=== PATIENT | male | born 1950 | race Caucasian/White ===

== ENCOUNTER 2017-03-03 12:35 | Inpatient (IN) ==
[2017-03-03] MEDS ORDERED: Piperacillin/Tazobactam 3.375 GM in D5% in Water (Mini-Bag+) 100 ML IVPB ONE (12:56)
[2017-03-03] MEDS ORDERED: Vancomycin 1,500 MG in D5% in Water 250 ML IVPB ONE (12:56)
--- NOTE | 2017-03-03 12:59 | Emergency Department Note ---
Disposition Clinical Impression: Cellulitis of left hand Disposition: Admitted As Inpatient Forms: ED Satisfaction Letter Skin/Abscess/FB HPI Chief complaint: ED Extremity Problem,Nontraumatic Stated complaint: Cellulitis L Hand From UC Time Seen by Provider: 03/03/17 12:48 Source: patient Limitations: no limitations Nursing Notes Reviewed: Yes Vital Signs Reviewed: Yes HPI Narrative: Patient states last Saturday he noticed a small bubble on his thumb he took a pocket knife and unroofed the blister with some clear fluid drainage. After this several days later his daughter who is an PROVIDER [employer] was using a needle and was also taking at the wound. He started developing redness in his thumb on Saturday evening he went to the urgent care was placed on Keflex and doxycycline. He went for reevaluation today they recommended transfer to the hospital for IV antibiotics due to worsening of the cellulitis. Severity: moderate Quality: dull Consistency: constant Improves with: immobilization Worsens with: palpation, movement Associated symptoms: Reports: fever, chills Treatments prior to arrival: attempted to drain pus at home, antibiotic Home Medications Medication Instructions Recorded Confirmed Gemfibrozil [Lopid] 600 mg PO DAILY 03/23/15 04/16/15 Lisinopril [Zestril] 40 mg PO DAILY 03/23/15 04/16/15 metFORMIN [Glucophage] 500 mg PO BID 03/23/15 04/16/15 Previous Rx's Medication Instructions Recorded predniSONE [PredniSONE] 5 mg PO AD #14 tablet 04/16/15 Allergies Allergy/AdvReac Type Severity Reaction Status Date / Time No Known Allergies Allergy Verified 03/23/15 17:53 All systems ED: reviewed and negative except as stated. Constitutional: Reports: fever, chills Gastrointestinal: Denies: abdominal pain, nausea, vomiting Past Medical History - Past Medical History Source: patient, old records reviewed, nursing notes reviewed Medical history: Reports: arthritis, diabetes, hyperlipidemia, hypertension Surgical history: Reports: appendectomy, cholecystectomy Psychiatric history: Reports: no psych history - Social History Smoking Status: Never smoker Smokeless Tobacco Status: No Alcohol use: Reports: none Drug use: Reports: none Physical Exam - General Limitations: no limitations General appearance: alert, in no apparent distress - Head Head exam: atraumatic, normocephalic, normal inspection - Eye Eye exam: Present: normal appearance, PERRL, EOMI - Expanded Eye Exam Pupils: Left: reactive - ENT ENT exam: normal exam, normal oropharynx, mucous membranes moist - Expanded ENT Exam External ear exam: Present: normal external inspection Mouth exam: Present: normal external inspection Teeth exam: Present: normal inspection Throat exam: Present: normal inspection - Neck Neck exam: Present: normal inspection, full ROM, trachea midline - Chest Chest inspection: Present: normal inspection, symmetric chest wall rise - Respiratory Respiratory exam: Present: normal lung sounds bilaterally - Cardiovascular Cardiovascular exam: Present: regular rate, normal rhythm, normal heart sounds - Abdominal Exam Abdominal exam: Present: soft, Non-Tender. Absent: tenderness, distention, guarding, rebound, rigidity - Expanded Upper Extremity Exam Shoulder exam: Present: normal inspection, full ROM Arm exam: Present: normal inspection, full ROM Elbow exam: Present: normal inspection, full ROM Hand exam: Present: other (The dorsal surface of the left thumb has some erythema bruising discoloration no palpable abscess he has erythema extending into the dorsum of the hand and also to the mid forearm. He is able to flex and extend his thumb against resistance but mildly limited due to the swelling) Vascular exam: Normal: capillary refill, radial pulse - Expanded Lower Extremity Exam Hip/Pelvis exam: Present: normal inspection, full ROM Upper leg exam: Present: normal inspection, full ROM Knee exam: Present: normal inspection, full ROM Lower leg exam: Present: normal inspection, full ROM Ankle exam: Present: normal inspection, full ROM Foot/toe exam: Present: normal inspection, full ROM Neurovascular/Tendon exam: Absent: motor deficit, sensory deficit, tendon deficit - Back Exam Back exam: Present: normal inspection, full ROM. Absent: tenderness - Neurological Exam Neurological exam: Present: alert, oriented X3 - Expanded Neurological Exam Patient oriented to: Present: person, place, time Coma Scale Eye Opening: Spontaneous Coma Scale Motor Response: Obeys Commands Coma Scale Verbal Response: Oriented Coma Scale Total: 15 - Psychiatric Psychiatric exam: Present: normal affect, normal mood - Skin Skin exam: Present: warm, dry, intact, normal color Course Vital Signs Temperature 98.3 F 03/03/17 12:40 Pulse Rate 96 03/03/17 12:40 Respiratory Rate 16 03/03/17 12:40 Blood Pressure 175/92 03/03/17 12:40 O2 Sat by Pulse Oximetry 99 03/03/17 12:40 Temperature 98.3 F 03/03/17 12:40 Pulse Rate 96 03/03/17 12:40 Respiratory Rate 16 03/03/17 12:40 Blood Pressure 175/92 03/03/17 12:40 O2 Sat by Pulse Oximetry 99 03/03/17 12:40 Oxygen Delivery Oxygen Delivery Room Air
[2017-03-03 13:18] LABS: Basophils % 0.2 %; Eosinophils # 0.1 K/mcL (0.0-0.6); Eosinophils % 1.1 %; Hematocrit 40.4 % (37.5-50.1); Hemoglobin 14.1 g/dL (12.9-16.9); Immature Granulocytes % 0.5 % (0-4); Lymphocytes # 1.3 K/mcL (0.6-4.6); Lymphocytes % 10.2 %; Mean Corpuscular HGB Conc 34.9 g/dL (31.6-35.5); Mean Corpuscular Hemoglobin 30.1 pg (28.0-33.3); Mean Corpuscular Volume 86.1 fL (83.0-100.0); Mean Platelet Volume 10.9 fL (9.4-12.4); Monocytes # 1.1 K/mcL (0.0-1.3); Monocytes % 8.6 %; Neutrophils # 10.4 K/mcL (1.6-8.9); Platelet Count 234 K/mcL (140-400); Red Blood Count 4.69 M/mcL (4.19-5.50); Red Cell Distribution Width 12.6 % (11.5-14.5); Segmented Neutrophils % 79.4 %
[2017-03-03 13:24] LABS: INR 1.1; Prothrombin Time 11.7 Seconds (9.4-12.1)
[2017-03-03 13:32] LABS: BUN/Creatinine Ratio 19 (6-26); Blood Urea Nitrogen 25 mg/dL (8-26); Calcium 10.6 mg/dL (8.6-10.8); Carbon Dioxide 21 mEq/L (19-29); Chloride 101 mEq/L (98-109); Glucose 234 mg/dL (70-99); Osmolality,Calculated 292 (280-300); Potassium 4.8 mEq/L (3.5-4.5); Sodium 135 mEq/L (136-145); eGFR For African Americans > 60 (> 60); eGFR For Non-African Americans 56 (> 60)
[2017-03-03 14:57] LABS: Hemoglobin A1C 10.6 %
[2017-03-03] MEDS ORDERED: Naloxone 0.4 MG/ML INJ IVP PRN (15:04)
[2017-03-03] MEDS ORDERED: Acetaminophen 325 MG TABLET PO PRN (15:04)
[2017-03-03] MEDS ORDERED: Ondansetron ODT 4 MG TAB.RAPDIS SL PRN (15:04)
[2017-03-03] MEDS ORDERED: D5% in Water 1,000 ML IVC PRN (15:06)
[2017-03-03] MEDS ORDERED: *HR* Dextrose 50 % in Water (Syg) 50 ML SYRINGE IVP PRN (15:06)
[2017-03-03] MEDS ORDERED: Dextrose Gel 15 GM PO PRN ×2 (15:06)
--- NOTE | 2017-03-03 15:24 | Internal Med History&Physical ---
<Vinita Lockhart M - Last Filed: 03/03/17 15:22> Date of Encounter: 03/03/17 Time of Encounter: 15:22 Assessment and Plan (1) Cellulitis of left hand Current visit: Yes Status: Acute Patient presents with worsening cellulitis of left thumb and hand despite outpatient treatment of Keflex and doxycycline since Saturday. Reporting chills and sweats. Hand xray showed diffuse soft tissue swelling with no evidence of osteomyelitis. WBC elevated to 13.1 and patient mildly tachycardic. Patient unable to flex or extend left thumb. Concern for possible tenosynovitis in left thumb. CT of left hand ordered. Elevate left hand. Blood cultures drawn. IV antibiotics with vanc and zosyn. Consulted Dr. Anna of orthopedic surgery who will see patient tomorrow. NPO after midnight in case of possible surgery. (2) Type 2 diabetes mellitus Current visit: Yes Status: Acute Not controlled as evidenced by A1c of 10.6% Patient reports he just recently started lantus. diabetic diet. Hold metformin check blood sugars ACHS and q6hr while NPO Levemir 10u tonight as patient is NPO after midnight (takes 17u at home) sliding scale correction dose ACHS and q6hr while NPO hypoglycemic protocol. 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 BUN also mildly elevated at 25. Hold lisinopril. IV fluids 0.9NS at 100. Recheck chemistry in the morning. (4) Hypertension Current visit: Yes Status: Chronic Holding lisinopril due to LIANET. Give Hydralazine Q6hr PRN. Qualifiers: Hypertension type: essential hypertension Qualified Code(s): I10 - Essential (primary) hypertension (5) DVT prophylaxis Current visit: Yes Status: Acute anti-embolic stockings Heparin 5000u TID Internal Medicine - H&P: HPI Chief complaint: cellulitis Admitted From: Emergency Dept Plans for Post Hospital Care: Home History of present illness: Mr. Arevalo is a 66 year old male with HTN, HLD, type 2 diabetes who presented to the emergency department with worsening cellulitis of left thumb despite outpatient treatment. Patient reports he noticed a "bump" on his left thumb on Saturday night. On , he used a knife to open it and some drainage came out. By night, it was red, swollen and it had spread to his hand and he had his daughter look at it, who also tried to drain it with a needle. He had chills and sweats, and intermittent nausea and poor appetite. He went to Urgent care on Saturday and reports getting a "shot in the butt" and was started on keflex and doxycycline, which he has been taking. He was instructed to return today if his symptoms did not improve, which he did and he was directed to come here. Evaluation in the ED included xray of the left hand which showed diffuse soft tissue swelling, no evidence of osteomyelitis. WBC count was elevated at 13.1. He was mildly tachycardic with HR in the 90s to low 100s. He had mild LIANET with creatinine of 1.30, above his previous value of 1.24. On exam, he is alert and oriented, in no distress. Heart has regular rate and rhythm, lungs are clear bilaterally to auscultation. Abdomen soft, nontender. His left thumb is erythematous with small wound between the proximal and distal interphalangeal joints. The dorsal aspect of his left hand is also erythematous and swollen. The erythema spreads up approximately 1/3 of his distal arm. He is unable to flex or extend the thumb and it is tender to palpation. Past Med Surg Social Fam HX - Past Medical History Medical history: arthritis, diabetes, hyperlipidemia, hypertension Psychiatric history: no psych history - Past Surgical History Surgical History: appendectomy, cholecystectomy - Social History Smoking Status: Former smoker (30 pack year history) Smokeless Tobacco Status: No Alcohol use: none Drug use: marijuana - Family History Mother Living Status: Age at : 42 Cause of : ESRD Hx Family Endocrine Disorder: Yes (diabetes) Father Living Status: Hx Family Cancer: Yes Internal Medicine - H&P: Meds Gemfibrozil [Lopid] 600 mg PO BID 03/23/15 [History] Lisinopril [Zestril] 10 mg PO DAILY 03/23/15 [History] metFORMIN [Glucophage] 1,000 mg PO BID 03/23/15 [History] Cephalexin [Keflex] 1,000 mg PO BID 03/03/17 [History] Doxycycline 100 mg PO BID 03/03/17 [History] Insulin Glargine [Lantus] 17 unit SQ HS 03/03/17 [History] Allergies No Known Allergies Allergy (Verified 03/23/15 17:53) All Systems PM: A 10-system review of systems was performed and is negative for pertinent findings except as documented above in the HPI. - Constitutional Constitutional: anorexia, chills, night sweats, no fever(s) - EENT Eyes: no change in vision, no discharge, no pain, no photophobia Ears: no ear discharge, no ear pain, no tinnitus Nose, mouth and throat: no dysphagia, no nasal discharge, no neck pain, no sore throat - Cardiovascular Cardiovascular ROS IM: no chest pain, no diaphoresis, no dyspnea, no lightheadedness, no palpitations, no syncope - Respiratory Respiratory: no cough, no dyspnea, no wheezing, no excessive phlegm production - Gastrointestinal Gastrointestinal: nausea, no abdominal pain, no diarrhea, no hematemesis, no hematochezia, no melena, no vomiting - Musculoskeletal Musculoskeletal ROS IM: no numbness, no tingling - Integumentary Integumentary IM: erythema (left hand and lower arm), sores (left thumb), no rash, no unusual bruising - Neurological Neurological ROS: no confusion, no convulsions, no focal weakness, no numbness, no tingling, no tremor(s) - Hematologic/Lymphatic Hematologic/Lymphatic: no easy bruising - Constitutional Vitals: Temp Pulse Resp BP Pulse Ox 98.3 F 94 15 135/96 97 03/03/17 12:40 03/03/17 15:07 03/03/17 15:16 03/03/17 15:16 03/03/17 15:07 General appearance: Present: A&O X 3, pleasant, no acute distress - Head Head exam: Present: atraumatic, normocephalic - Eye Eye exam: Present: PERRL, conjuntiva pink, sclera anicteric Pupils: Present: PERRL - Neck Neck exam general surgery: Present: supple, trachea midline. Absent: lymphadenopathy - Respiratory Respiratory exam: Present: CTAB. Absent: accessory muscle use, rales, rhonchi, wheezes - Cardiovascular Cardiovascular exam: Present: RRR, +S1, +S2. Absent: diastolic murmur, gallop, rubs, systolic murmur - GI/Abdominal GI/Abdominal exam: Present: normal bowel sounds, soft, no peritoneal signs. Absent: distended, tenderness - Extremities Exam Extremities exam: Present: warm, radial pulses palpable and symmetrical. Absent : calf tenderness, cyanotic, pedal edema Additional comments: His left thumb is erythematous with small wound between the proximal and distal interphalangeal joints. The dorsal aspect of his left hand is also erythematous and swollen. The erythema spreads up approximately 1/3 of his distal arm. He is unable to flex or extend the thumb and it is tender to palpation. - Expanded Upper Extremities Exam Forearm wrist exam: Present: erythema (left) Hand wrist exam: Present: erythema (left), swelling (left), tenderness (left) Neuro motor exam: Absent: thumb IP flexion intact - Neurological Exam Neurological exam: Present: CN II-XII intact, oriented X3, no focal deficits. Absent: pronater drift, facial droop, speech deficit - Skin Skin exam: Present: dry, intact Internal Med - H&P Results - Labs CBC & Chem 7: 03/03/17 13:11 03/03/17 13:11 Labs: All Lab Results (24 Hours) 03/03/17 03/03/17 03/03/17 Range/Units 13:11 13:11 13:11 WBC 13.1 H (4.3-11.1) K/mcL RBC 4.69 (4.19-5.50) M/mcL Hgb 14.1 (12.9-16.9) g/dL Hct 40.4 (37.5-50.1) % MCV 86.1 (83.0-100.0) fL MCH 30.1 (28.0-33.3) pg MCHC 34.9 (31.6-35.5) g/dL RDW 12.6 (11.5-14.5) % Plt Count 234 (140-400) K/mcL MPV 10.9 (9.4-12.4) fL Immature Gran % 0.5 (0-4) % Seg Neutrophils % 79.4 % Lymphocytes % 10.2 % Monocytes % 8.6 % Eosinophils % 1.1 % Basophils % 0.2 % Neutrophils # 10.4 H (1.6-8.9) K/mcL Lymphocytes # 1.3 (0.6-4.6) K/mcL Monocytes # 1.1 (0.0-1.3) K/mcL Eosinophils # 0.1 (0.0-0.6) K/mcL Basophils # 0.0 (0.0-0.2) K/mcL ESR (0-10) mm/hr PT 11.7 (9.4-12.1) Seconds INR 1.1 APTT 32.0 (26.0-36.0) Seconds Sodium 135 L (136-145) mEq/L Potassium 4.8 H (3.5-4.5) mEq/L Chloride 101 (98-109) mEq/L Carbon Dioxide 21 (19-29) mEq/L BUN 25 (8-26) mg/dL Creatinine 1.30 H (0.72-1.25) mg/dL Est GFR ( Amer) > 60 (> 60) Est GFR (Non-Af Amer) 56 L (> 60) BUN/Creatinine Ratio 19 (6-26) Glucose 234 H (70-99) mg/dL Est Mean Plasma Glucose mg/dl Hemoglobin A1c ( - 5.6) % Calculated Osmolality 292 (280-300) Lactic Acid (0.5-2.2) mmol/L Calcium 10.6 (8.6-10.8) mg/dL 03/03/17 03/03/17 03/03/17 Range/Units 13:11 13:11 13:11 WBC (4.3-11.1) K/mcL RBC (4.19-5.50) M/mcL Hgb (12.9-16.9) g/dL Hct (37.5-50.1) % MCV (83.0-100.0) fL MCH (28.0-33.3) pg MCHC (31.6-35.5) g/dL RDW (11.5-14.5) % Plt Count (140-400) K/mcL MPV (9.4-12.4) fL Immature Gran % (0-4) % Seg Neutrophils % % Lymphocytes % % Monocytes % % Eosinophils % % Basophils % % Neutrophils # (1.6-8.9) K/mcL Lymphocytes # (0.6-4.6) K/mcL Monocytes # (0.0-1.3) K/mcL Eosinophils # (0.0-0.6) K/mcL Basophils # (0.0-0.2) K/mcL ESR 106 H (0-10) mm/hr PT (9.4-12.1) Seconds INR APTT (26.0-36.0) Seconds Sodium (136-145) mEq/L Potassium (3.5-4.5) mEq/L Chloride (98-109) mEq/L Carbon Dioxide (19-29) mEq/L BUN (8-26) mg/dL Creatinine (0.72-1.25) mg/dL Est GFR ( Amer) (> 60) Est GFR (Non-Af Amer) (> 60) BUN/Creatinine Ratio (6-26) Glucose (70-99) mg/dL Est Mean Plasma Glucose 258 mg/dl Hemoglobin A1c 10.6 H ( - 5.6) % Calculated Osmolality (280-300) Lactic Acid 1.1 (0.5-2.2) mmol/L Calcium (8.6-10.8) mg/dL - Diagnostic Studies Other Images Additional comments: Hand X-Ray 03/03/17 12:58 IMPRESSION: 1. Diffuse soft tissue swelling. No radiopaque foreign body or soft tissue gas. 2. No radiographic evidence of osteomyelitis or other acute abnormality. 3. Suspect a chronic nondisplaced fracture of the 5th metacarpal neck. D/ / Tanmay Phan MD / Tanmay Phan MD Interpreting Provider: Tanmay Phan MD <Kenia Ivy - Last Filed: 03/03/17 18:06> Date of Encounter: 03/03/17 Internal Medicine - H&P: HPI History of present illness: Mr. Arevalo is a 66 year old male Past Med Surg Social Fam HX - Family History Mother Living Status: Age at : 42 Cause of : ESRD Hx Family Endocrine Disorder: Yes (diabetes) Father Living Status: Hx Family Cancer: Yes Sister Hx Family Endocrine Disorder: Yes All Systems PM: A 10-system review of systems was performed and is negative for pertinent findings except as documented above in the HPI. - Constitutional Vitals: Temp Pulse Resp BP Pulse Ox 98.5 F 84 16 172/91 97 03/03/17 15:57 03/03/17 15:57 03/03/17 15:57 03/03/17 15:57 03/03/17 15:57 Internal Med - H&P Results - Labs CBC & Chem 7: 03/03/17 13:11 03/03/17 13:11 - Impressions ITS Impressions Hand CT 03/03/17 15:19 IMPRESSION: 1. Subcutaneous fat stranding in the 1st digit and along the dorsum of the hand and wrist compatible with cellulitis. No well-defined drainable fluid collection. 2. Grossly intact tendons without convincing evidence of tenosynovitis. Please note that CT is limited for evaluation of tenosynovitis. 3. No CT evidence of osteomyelitis or other acute osseous abnormality. D/ / Tanmay Phan MD / Tanmay Phan MD Interpreting Provider: Tanmay Phan MD - Attending Attestation I examined this patient and my medical decision-making was reviewed with the HUM[employer]NA[employer]UR[employer]. I agree with the documented findings, disposition and treatment plan as described .
[2017-03-03] MEDS: *HR* Heparin 5,000 UNIT/ML VIAL SQ SCH (15:58)
[2017-03-03] MEDS: 0.9 % Sodium Chloride 1,000 ML IVC SCH (15:58)
[2017-03-03] MEDS: Piperacillin/Tazobactam 3.375 GM in D5% in Water (Mini-Bag+) 100 ML IVPB SCH (15:59)
[2017-03-03] MEDS ORDERED: Insulin LISPRO 300 UNITS/3 ML VIAL SQ SCH ×2 (16:30→21:00)
[2017-03-03] MEDS ORDERED: Insulin DETEMIR 100 UNIT/ML X5UNITS SQ SCH ×2 (21:00)
[2017-03-04] MEDS: *HR* Heparin 5,000 UNIT/ML VIAL SQ SCH ×4 (00:45→23:41)
[2017-03-04] MEDS: Insulin LISPRO 300 UNITS/3 ML VIAL SQ SCH ×5 (00:45→22:01)
[2017-03-04] MEDS: Piperacillin/Tazobactam 3.375 GM in D5% in Water (Mini-Bag+) 100 ML IVPB SCH ×4 (01:00→23:41)
[2017-03-04] MEDS: Vancomycin 1,500 MG in D5% in Water 250 ML IVPB SCH ×2 (02:00→15:43)
[2017-03-04 03:29] LABS: BUN/Creatinine Ratio 20 (6-26); Blood Urea Nitrogen 22 mg/dL (8-26); Calcium 9.7 mg/dL (8.6-10.8); Carbon Dioxide 21 mEq/L (19-29); Chloride 102 mEq/L (98-109); Glucose 190 mg/dL (70-99); Osmolality,Calculated 286 (280-300); Potassium 3.9 mEq/L (3.5-4.5); Sodium 134 mEq/L (136-145); eGFR For African Americans > 60 (> 60); eGFR For Non-African Americans > 60 (> 60)
[2017-03-04 03:47] LABS: Basophils % 0.3 %; Eosinophils # 0.2 K/mcL (0.0-0.6); Eosinophils % 1.7 %; Hematocrit 37.5 % (37.5-50.1); Immature Granulocytes % 0.4 % (0-4); Lymphocytes # 1.4 K/mcL (0.6-4.6); Lymphocytes % 12.7 %; Mean Corpuscular HGB Conc 34.7 g/dL (31.6-35.5); Mean Corpuscular Volume 86.4 fL (83.0-100.0); Mean Platelet Volume 11.5 fL (9.4-12.4); Monocytes # 1.1 K/mcL (0.0-1.3); Monocytes % 9.9 %; Neutrophils # 8.6 K/mcL (1.6-8.9); Platelet Count 254 K/mcL (140-400); Red Blood Count 4.34 M/mcL (4.19-5.50); Red Cell Distribution Width 12.4 % (11.5-14.5)
[2017-03-04] MEDS ORDERED: Vancomycin 1,500 MG in D5% in Water 250 ML IVPB SCH (09:00)
--- NOTE | 2017-03-04 11:04 | Orthopedic Consult Note ---
Date of Encounter: 03/04/17 Time of Encounter: 07:45 Assessment and Plan (1) Cellulitis of left hand Current Visit: Yes Status: Acute Continue IV abx and pain control per hospitalist. Will continue to monitor after another night. If no improvement tomorrow will consider surgical intervention. Elevate hand in stockinette from IV pole. ROM as tolerated. History of Present Illness Chief complaint: left thumb swelling HPI: Mr. Arevalo is a 66 year old male who presented to the ER yesterday with left thumb swelling and redness. States that he first noticed a little blister to the top of his thumb on 02/27. The next day he admits to using his pocket knife to pop open the blister and got a little watery drainage from it. That night started to notice the redness and swelling and admits to applying a "black drawing salve". He went to urgent care on 03/01 and states he was given rocephin and started on PO keflex and doxycycline but he did not notice any improvement so he returned on 03/03 and was then admitted. He states he has not noticed much improvement in his swelling or redness overnight but he feels he has some improved motion to the thumb. States most of pain is on top of thumb and the redness spreads to hand and wrist. No pain at rest, only with motion of thumb. Denies numbness to tingling to digits. Denies any known injury, thought it was maybe a splinter. Denies any chest pain, SOB, fever. Past Med Surg Social Fam HX - Past Medical History Medical history: arthritis, diabetes, hyperlipidemia, hypertension Psychiatric history: no psych history - Past Surgical History Surgical History: appendectomy, cholecystectomy - Social History Smoking Status: Former smoker (30 pack year history) Smokeless Tobacco Status: No Alcohol use: none Drug use: marijuana - Family History Mother Living Status: Age at : 42 Cause of : ESRD Hx Family Endocrine Disorder: Yes (diabetes) Father Living Status: Hx Family Cancer: Yes Sister Hx Family Endocrine Disorder: Yes Medications and Allergies Gemfibrozil [Lopid] 600 mg PO BID 03/23/15 [History] Lisinopril [Zestril] 10 mg PO DAILY 03/23/15 [History] metFORMIN [Glucophage] 1,000 mg PO BID 03/23/15 [History] Cephalexin [Keflex] 1,000 mg PO BID 03/03/17 [History] Doxycycline 100 mg PO BID 03/03/17 [History] Insulin Glargine [Lantus] 17 unit SQ HS 03/03/17 [History] Allergies No Known Allergies Allergy (Verified 03/23/15 17:53) All Systems Reviewed: A 10-system review of systems was performed and is negative for pertinent findings except as documented above in the HPI. - Constitutional Constitutional: as per HPI - Cardiovascular Cardiovascular: as per HPI - Respiratory Respiratory: as per HPI - Musculoskeletal Musculoskeletal: as per HPI Physical Exam - Constitutional Vitals: Temp Pulse Resp BP Pulse Ox 98.3 F 91 16 159/90 97 03/04/17 06:44 03/04/17 06:44 03/04/17 06:44 03/04/17 06:44 03/04/17 08:23 - Wrist & Hand left Location of pain: thumb (Moderate erythema and swelling to dorsal thumb from base of nail bed to wrist all on dorsal side. No erythema to volar side. Small punture wound to dorsal thumb over proximal phalanx. Mild fluctuance noted over first MC head moderate tenderness to palpation of first digt on dorsal side, minimal pain on volar side. thumb held in slightly flexed position with moderate pain with passive flexion or extension. Limited AROM of thumb. Good motion of all other digits and wrist with no pain. brisk cap refill, NV intact) Results - Labs Result Diagrams: 03/04/17 01:16 03/04/17 01:16 Labs: Abnormal lab results WBC 11.4 K/mcL (4.3-11.1) H 03/04/17 01:16 ESR 106 mm/hr (0-10) H 03/03/17 13:11 Sodium 134 mEq/L (136-145) L 03/04/17 01:16 Glucose 190 mg/dL (70-99) H 03/04/17 01:16 POC Glucose 189 (58-89) H 03/04/17 00:38 Hemoglobin A1c 10.6 % (-5.6) H 03/03/17 13:11 H & H 03/04/17 Range/Units 01:16 Hgb 13.0 (12.9-16.9) g/dL Hct 37.5 (37.5-50.1) % All other labs normal. Consult Discharge Plan - Plan Referrals: Airam Fenton CNP [Primary Care Provider] - - Attending Attestation Case and plan of care discussed with supervising physician who was available for all aspects of care.
[2017-03-04] MEDS: 0.9 % Sodium Chloride 1,000 ML IVC SCH (12:57)
--- NOTE | 2017-03-04 15:33 | Internal Med Progress Note ---
Date of Encounter: 03/04/17 Time of Encounter: 08:35 - Assessment and plan (1) Cellulitis of left hand Current Visit: Yes Status: Acute Assessment and plan: Continue IV antibiotics. Orthopedics has been consulted and we will follow their recommendations. Failed outpatient treatment. Moderate risk for complications. (2) Hypertension Current Visit: Yes Status: Chronic Assessment and plan: Will place patient back on lisinopril now that his renal function has normalized. Blood pressure is uncontrolled. Qualifiers: Hypertension type: essential hypertension Qualified Code(s): I10 - Essential (primary) hypertension (3) Type 2 diabetes mellitus Current Visit: Yes Status: Chronic Assessment and plan: Blood sugars are elevated. On sliding scale insulin and Levemir. We will increase her dosage. Continue to monitor blood sugars closely. Continue diabetic diet. Qualifiers: Diabetes mellitus complication status: with hyperglycemia Diabetes mellitus emt intermediate insulin use: with emt intermediate use Qualified Code(s): E11.65 - Type 2 diabetes mellitus with hyperglycemia; Z79.4 - director long term care (current) use of insulin (4) LIANET (acute kidney injury) Current Visit: Yes Status: Resolved Assessment and plan: Acute kidney injury has resolved. Patient will be placed back on lisinopril. Patient has chronic pain and has been taking ibuprofen twice daily for several months to years. He has been advised to discontinue taking this medication on a regular basis (5) DVT prophylaxis Current Visit: Yes Status: Acute Assessment and plan: On heparin - Subjective Interval history: Patient is sitting up in chair. Appears comfortable. Denies any new complaints. Swelling and redness in his left hand is slightly improved compared to yesterday. No fever or chills reported. - Constitutional Vitals: Temp Pulse Resp BP Pulse Ox 97.9 F 84 16 156/90 98 03/04/17 11:20 03/04/17 11:20 03/04/17 11:20 03/04/17 11:20 03/04/17 11:20 General appearance: Present: A&O X 3, pleasant, no acute distress, answers questions appropriately - Respiratory Respiratory exam: Present: CTAB. Absent: accessory muscle use, rales, rhonchi, wheezes - Cardiovascular Cardiovascular exam: Present: RRR, +S1, +S2. Absent: diastolic murmur, gallop, rubs, systolic murmur - GI/Abdominal GI/Abdominal exam: Present: normal bowel sounds, soft, no peritoneal signs. Absent: distended, tenderness - Extremities Exam Extremities exam: Present: warm, radial pulses palpable and symmetrical. Absent : calf tenderness, cyanotic, pedal edema Additional comments: Erythema and swelling involving the thumb and dorsum of the left hand. Palmar surfaces completely excluded from cellulitis. - Neurological Exam Neurological exam: Present: alert, oriented X3, no focal deficits. Absent: facial droop, speech deficit Internal Medicine: Result - Labs CBC & Chem 7: 03/04/17 01:16 03/04/17 01:16 Labs: Short CBC 03/04/17 Range/Units 01:16 WBC 11.4 H (4.3-11.1) K/mcL Hgb 13.0 (12.9-16.9) g/dL Hct 37.5 (37.5-50.1) % Plt Count 254 (140-400) K/mcL Neutrophils # 8.6 (1.6-8.9) K/mcL BMP 03/04/17 01:16 Sodium 134 L Potassium 3.9 Chloride 102 Carbon Dioxide 21 BUN 22 Creatinine 1.09 Glucose 190 H Calcium 9.7 - ABG Interpretation ABG results: PT/INR, D-dimer PT 11.7 Seconds (9.4-12.1) 03/03/17 13:11 - Impressions Impressions Hand CT 03/03/17 15:19 IMPRESSION: 1. Subcutaneous fat stranding in the 1st digit and along the dorsum of the hand and wrist compatible with cellulitis. No well-defined drainable fluid collection. 2. Grossly intact tendons without convincing evidence of tenosynovitis. Please note that CT is limited for evaluation of tenosynovitis. 3. No CT evidence of osteomyelitis or other acute osseous abnormality. D/ / Tanmay Phan MD / Tanmay Phan MD Interpreting Provider: Tanmay Phan MD - VTE Documentation of Mechanical Device: Graduated compression elastic hosiery Consult Discharge Plan - Plan Referrals: Airam Fenton, ROLLER MILL OPERATOR [Primary Care Provider] -
[2017-03-04] MEDS ORDERED: Insulin DETEMIR 100 UNIT/ML X5UNITS SQ SCH (16:15)
[2017-03-05 02:27] LABS: Basophils % 0.3 %; Eosinophils # 0.1 K/mcL (0.0-0.6); Eosinophils % 1.3 %; Hematocrit 38.9 % (37.5-50.1); Hemoglobin 13.9 g/dL (12.9-16.9); Immature Granulocytes % 0.5 % (0-4); Lymphocytes # 1.8 K/mcL (0.6-4.6); Lymphocytes % 16.9 %; Mean Corpuscular HGB Conc 35.7 g/dL (31.6-35.5); Mean Corpuscular Hemoglobin 30.5 pg (28.0-33.3); Mean Corpuscular Volume 85.3 fL (83.0-100.0); Neutrophils # 7.4 K/mcL (1.6-8.9); Platelet Count 262 K/mcL (140-400); Red Blood Count 4.56 M/mcL (4.19-5.50); Red Cell Distribution Width 12.2 % (11.5-14.5)
[2017-03-05 02:41] LABS: BUN/Creatinine Ratio 20 (6-26); Blood Urea Nitrogen 18 mg/dL (8-26); Calcium 10.4 mg/dL (8.6-10.8); Carbon Dioxide 22 mEq/L (19-29); Chloride 101 mEq/L (98-109); Glucose 140 mg/dL (70-99); Osmolality,Calculated 284 (280-300); Potassium 3.8 mEq/L (3.5-4.5); Sodium 135 mEq/L (136-145); eGFR For African Americans > 60 (> 60); eGFR For Non-African Americans > 60 (> 60)
[2017-03-05] MEDS: Vancomycin 1,500 MG in D5% in Water 250 ML IVPB SCH ×2 (02:53→15:04)
[2017-03-05] MEDS: *HR* Heparin 5,000 UNIT/ML VIAL SQ SCH ×3 (08:11→23:16)
[2017-03-05] MEDS: Insulin LISPRO 300 UNITS/3 ML VIAL SQ SCH ×6 (08:11→21:08)
[2017-03-05] MEDS: Piperacillin/Tazobactam 3.375 GM in D5% in Water (Mini-Bag+) 100 ML IVPB SCH ×3 (08:11→23:16)
[2017-03-05] MEDS ORDERED: Lisinopril 20 MG TABLET PO SCH (09:00)
[2017-03-05] MEDS: Insulin DETEMIR 100 UNIT/ML X5UNITS SQ SCH ×2 (09:59→21:07)
--- NOTE | 2017-03-05 14:53 | Internal Med Progress Note ---
Date of Encounter: 03/05/17 Time of Encounter: 13:10 - Assessment and plan (1) Cellulitis of left hand Current Visit: Yes Status: Acute Assessment and plan: Continue IV antibiotics. Orthopedic consultation appreciated-awaiting follow up. given clinical presentation, pt may benefit from surgical intervention. Moderate risk for complications. (2) Hypertension Current Visit: Yes Status: Chronic Assessment and plan: BP within acceptable range continue home medications Qualifiers: Hypertension type: essential hypertension Qualified Code(s): I10 - Essential (primary) hypertension (3) Type 2 diabetes mellitus Current Visit: Yes Status: Chronic Assessment and plan: Noted to remain hyperglycemic increased levemir to 12units SQ q12h and added humalog 4units TIDAC continue ss insulin algorithm monitor FS and BG closely ADA diet Qualifiers: Diabetes mellitus complication status: with hyperglycemia Diabetes mellitus residential insulin use: with skidder use Qualified Code(s): E11.65 - Type 2 diabetes mellitus with hyperglycemia; Z79.4 - retirement (current) use of insulin (4) LIANET (acute kidney injury) Current Visit: Yes Status: Resolved Assessment and plan: Acute kidney injury has resolved. Patient will be placed back on lisinopril. Patient has chronic pain and has been taking ibuprofen twice daily for several months to years. He has been advised to discontinue taking this medication on a regular basis (5) DVT prophylaxis Current Visit: Yes Status: Acute Assessment and plan: Heparin SQ - Subjective Interval history: Pt seen and examined at bedside. Sitting comfortably in bed and states he doesn' t really have pain until his right thumb is touched. No overnight events were reported. Reported of smoking marijuana daily. - Constitutional Vitals: Temp Pulse Resp BP Pulse Ox 98.6 F 84 16 126/75 97 03/05/17 11:25 03/05/17 11:25 03/05/17 11:25 03/05/17 11:25 03/05/17 11:25 General appearance: Present: A&O X 3, pleasant, no acute distress, answers questions appropriately - Head Head exam: Present: atraumatic, normocephalic - Eye Eye exam: Present: conjuntiva pink, sclera anicteric - Respiratory Respiratory exam: Absent: respiratory distress, wheezes - Cardiovascular Cardiovascular exam: Present: RRR, +S1, +S2. Absent: diastolic murmur, gallop, rubs, systolic murmur - GI/Abdominal GI/Abdominal exam: Present: normal bowel sounds, soft, no peritoneal signs. Absent: distended, tenderness - Extremities Exam Extremities exam: Present: warm, radial pulses palpable and symmetrical. Absent : calf tenderness, pedal edema (left thumb and dorsal surface erythema and swelling noted) - Neurological Exam Neurological exam: Present: alert, oriented X3 - Psychiatric Psychiatric exam: Present: normal affect, normal mood Internal Medicine: Result - Labs CBC & Chem 7: 03/05/17 01:38 03/05/17 01:38 Labs: Short CBC 03/05/17 Range/Units 01:38 WBC 10.4 (4.3-11.1) K/mcL Hgb 13.9 (12.9-16.9) g/dL Hct 38.9 (37.5-50.1) % Plt Count 262 (140-400) K/mcL Neutrophils # 7.4 (1.6-8.9) K/mcL BMP 03/05/17 01:38 Sodium 135 L Potassium 3.8 Chloride 101 Carbon Dioxide 22 BUN 18 Creatinine 0.92 Glucose 140 H Calcium 10.4 - ABG Interpretation ABG results: PT/INR, D-dimer PT 11.7 Seconds (9.4-12.1) 03/03/17 13:11 - VTE Documentation of Mechanical Device: Graduated compression elastic hosiery Consult Discharge Plan - Plan Referrals: Airam Fenton, TELEPHOTO ENGINEER [Primary Care Provider] -
[2017-03-05] MEDS: *HR* HYDROcodone/Acet 5/325 mg TABLET PO PRN (15:05)
--- NOTE | 2017-03-05 16:10 | Orthopedics Progress Note ---
Date of Encounter: 03/05/17 Time of Encounter: 15:00 - Assessment and Plan (1) Cellulitis of left hand Current Visit: Yes Status: Acute Little improvement overnight in swelling and erythema. Bedside I&D performed today. Discussed procedure as well as r/b/a with patient, all questions answered and consent obtained. Left thumb was prepped and draped in sterile fashion. digital block performed with 10cc 1% lidocaine divided between block site and incision site. Incision made to dorsal thumb over proximal phalanx. Small amount purulent drainage expressed from incision. cultures obtained. Hemostats used to break any loculations. Area flushed with saline and iodoform packing placed. Sterile dressings applied. Patient tolerated procedure well with no complications. Continue IV abx and pain control per hospitalist. Elevate hand in stockinette from IV pole. ROM as tolerated. Dressings only to be changed if saturated but leave packing in place. I will reevaluate tomorrow and remove packing tomorrow. Subjective Principal diagnosis: Left thumb cellulitis Interval history: Patient doing well with minimal pain, no events overnight. He does not feel that he has improved much overnight. States he has been keeping the hand elevated in stockinette overnight Objective Vital signs: Vital Signs Temp Pulse Resp BP Pulse Ox 03/05/17 11:25 98.6 F 84 16 126/75 97 03/05/17 06:46 98.2 F 70 16 142/73 95 03/05/17 04:14 97.7 F 73 17 137/79 97 03/04/17 23:44 97.9 F 81 18 173/90 96 03/04/17 20:53 98.1 F 83 18 178/91 96 Intake and Output 03/05/17 03/05/17 03/05/17 07:59 15:59 23:59 Intake Total 350 / 350 835 / 835 Output Total 400 / 400 Balance 350 / 350 435 / 435 Intake: IV Fluids 350 / 350 355 / 355 Zosyn 3.375 GM In 100 / 100 5 / 5 Dextrose 5% (Minibag+) 100 ML 100 ML @ 25 mls/hr IVPB Q8HR [facility] Rx#: [id number] Vancocin 1,500 MG In 250 / 250 Dextrose 5% 250 ML @ 166. 667 mls/hr IVPB Q12H [facility] Rx#:[id number] Oral 480 / 480 Output: Urine 400 / 400 Other: Meal Breakfast Percent of Meal Consumed 100% # Voids 2 Weight 95.7 kg Blood Glucose* 388 182 Patient Weight 03/05/17 23:59 Weight 95.7 kg Incision: swollen (left thumb swelling continues with little improvement, forming more of an abscess to dorsal surface, tenderness to palpation over MC head. limited ROM of thumb, brisk cap refill, NV intact) - Labs CBC & BMP: 03/05/17 01:38 03/05/17 01:38 Labs: Abnormal lab results MCHC 35.7 g/dL (31.6-35.5) H 03/05/17 01:38 ESR 106 mm/hr (0-10) H 03/03/17 13:11 Sodium 135 mEq/L (136-145) L 03/05/17 01:38 Glucose 140 mg/dL (70-99) H 03/05/17 01:38 POC Glucose 182 (58-89) H 03/05/17 12:11 Hemoglobin A1c 10.6 % (-5.6) H 03/03/17 13:11 - VTE Documentation of Mechanical Device: Graduated compression elastic hosiery Consult Discharge Plan - Plan Referrals: Airam Fenton, ELECTRICAL UNIT REBUILDER [Primary Care Provider] -
[2017-03-06] MEDS: Vancomycin 1,500 MG in D5% in Water 250 ML IVPB SCH ×2 (02:54→14:17)
[2017-03-06] MEDS: *HR* HYDROcodone/Acet 5/325 mg TABLET PO PRN (04:55)
[2017-03-06 05:08] LABS: Basophils % 0.4 %; Eosinophils # 0.2 K/mcL (0.0-0.6); Eosinophils % 2.2 %; Hematocrit 36.8 % (37.5-50.1); Hemoglobin 13.1 g/dL (12.9-16.9); Immature Granulocytes % 0.7 % (0-4); Immature Platelets 4.6 % (1.1-6.1); Lymphocytes # 1.9 K/mcL (0.6-4.6); Lymphocytes % 19.2 %; Mean Corpuscular HGB Conc 35.6 g/dL (31.6-35.5); Mean Corpuscular Hemoglobin 30.7 pg (28.0-33.3); Mean Corpuscular Volume 86.2 fL (83.0-100.0); Mean Platelet Volume 10.5 fL (9.4-12.4); Monocytes # 1.1 K/mcL (0.0-1.3); Monocytes % 11.6 %; Neutrophils # 6.4 K/mcL (1.6-8.9); Platelet Count 277 K/mcL (140-400); Red Blood Count 4.27 M/mcL (4.19-5.50); Red Cell Distribution Width 12.1 % (11.5-14.5); Segmented Neutrophils % 65.9 %
[2017-03-06 05:21] LABS: BUN/Creatinine Ratio 20 (6-26); Blood Urea Nitrogen 19 mg/dL (8-26); Calcium 10.1 mg/dL (8.6-10.8); Carbon Dioxide 25 mEq/L (19-29); Chloride 100 mEq/L (98-109); Glucose 199 mg/dL (70-99); Magnesium 1.5 mg/dL (1.6-2.6); Osmolality,Calculated 288 (280-300); Phosphorous 4.3 mg/dL (2.3-4.7); Sodium 135 mEq/L (136-145); eGFR For African Americans > 60 (> 60); eGFR For Non-African Americans > 60 (> 60)
[2017-03-06] MEDS: Insulin LISPRO 300 UNITS/3 ML VIAL SQ SCH ×7 (07:48→21:08)
[2017-03-06] MEDS: *HR* Heparin 5,000 UNIT/ML VIAL SQ SCH ×2 (07:50→16:13)
[2017-03-06] MEDS: Piperacillin/Tazobactam 3.375 GM in D5% in Water (Mini-Bag+) 100 ML IVPB SCH ×2 (07:51→21:09)
[2017-03-06] MEDS ORDERED: Magnesium Sulfate 1 GM in D5% in Water 100 ML IVPB ONE (08:08)
[2017-03-06] MEDS: Insulin DETEMIR 100 UNIT/ML X5UNITS SQ SCH ×2 (08:30→21:08)
--- NOTE | 2017-03-06 09:30 | Internal Med Progress Note ---
Date of Encounter: 03/06/17 Time of Encounter: 08:30 - Assessment and plan (1) Cellulitis of left hand Current Visit: Yes Status: Acute Assessment and plan: Continue IV antibiotics. Orthopedic consultation appreciated s/p I&D of left thumb wound f/u wound cultures daily wound care Moderate risk for complications. (2) Hypertension Current Visit: Yes Status: Chronic Assessment and plan: BP within acceptable range continue home medications Qualifiers: Hypertension type: essential hypertension Qualified Code(s): I10 - Essential (primary) hypertension (3) Type 2 diabetes mellitus Current Visit: Yes Status: Chronic Assessment and plan: Noted to remain hyperglycemic increased levemir to 20 units SQ q12h and added humalog 9 units TIDAC continue ss insulin algorithm monitor FS and BG closely ADA diet Qualifiers: Diabetes mellitus complication status: with hyperglycemia Diabetes mellitus termite exterminator insulin use: with alf use Qualified Code(s): E11.65 - Type 2 diabetes mellitus with hyperglycemia; Z79.4 - correction (current) use of insulin (4) LIANET (acute kidney injury) Current Visit: Yes Status: Resolved Assessment and plan: Acute kidney injury has resolved. continue lisinopril Patient has chronic pain and has been taking ibuprofen twice daily for several months to years. He has been advised to discontinue taking this medication on a regular basis (5) DVT prophylaxis Current Visit: Yes Status: Acute Assessment and plan: Heparin SQ (6) Electrolyte abnormality Current Visit: Yes Status: Acute Assessment and plan: Hypomagnesemia Mg supplemented continue to monitor electrolytes and replace as needed - Subjective Interval history: Pt seen and examined at bedside. Sitting comfortably in bed and denies any pain at this time. S/P I&D of left thumb by orthopedic surgery. No overnight issues reported. - Constitutional Vitals: Temp Pulse Resp BP Pulse Ox 98.7 F 86 16 144/78 96 03/06/17 06:34 03/06/17 06:34 03/06/17 06:34 03/06/17 06:34 03/06/17 06:34 General appearance: Present: A&O X 3, pleasant, no acute distress, answers questions appropriately - Head Head exam: Present: atraumatic, normocephalic - Eye Eye exam: Present: conjuntiva pink, sclera anicteric - Respiratory Respiratory exam: Present: CTAB. Absent: respiratory distress, wheezes - Cardiovascular Cardiovascular exam: Present: RRR, +S1, +S2. Absent: diastolic murmur, gallop, rubs, systolic murmur - GI/Abdominal GI/Abdominal exam: Present: normal bowel sounds, soft, no peritoneal signs. Absent: distended, tenderness - Extremities Exam Extremities exam: Present: warm, radial pulses palpable and symmetrical. Absent : calf tenderness, cyanotic, pedal edema Additional comments: left hand dressing intact-dressing dry - Neurological Exam Neurological exam: Present: alert, oriented X3 - Psychiatric Psychiatric exam: Present: normal affect, normal mood Internal Medicine: Result - Labs CBC & Chem 7: 03/06/17 04:29 03/06/17 04:29 Labs: Short CBC 03/06/17 Range/Units 04:29 WBC 9.7 (4.3-11.1) K/mcL Hgb 13.1 (12.9-16.9) g/dL Hct 36.8 L (37.5-50.1) % Plt Count 277 (140-400) K/mcL Neutrophils # 6.4 (1.6-8.9) K/mcL BMP 03/06/17 04:29 Sodium 135 L Potassium 4.0 Chloride 100 Carbon Dioxide 25 BUN 19 Creatinine 0.93 Glucose 199 H Calcium 10.1 - ABG Interpretation ABG results: PT/INR, D-dimer PT 11.7 Seconds (9.4-12.1) 03/03/17 13:11 - VTE Documentation of Mechanical Device: Graduated compression elastic hosiery Consult Discharge Plan - Plan Referrals: Airam Fenton, ARTISAN PLASTERER [Primary Care Provider] -
--- NOTE | 2017-03-06 15:56 | Orthopedics Progress Note ---
Date of Encounter: 03/06/17 Time of Encounter: 12:45 - Assessment and Plan (1) Cellulitis of left hand Current Visit: Yes Status: Acute Minimal improvement in swelling and erythema to lef thumb since I&D yesterday. Dressings removed today, had moderate drainage. Packing removed. Incision cleansed with soap/water and new dry gauze dressings applied. Will begin wound care washing incision with soap/water TID and apply new dry gauze dressings each time. Wound cx presumptive MRSA, final results pending. WBC has decreased since admission from 13.1 to 9.7 today, ESR elevated from 106 to 120, CRP 93 (no comparison). Continue IV abx and pain control per hospitalist. Elevate hand in stockinette from IV pole. ROM as tolerated. Subjective Principal diagnosis: Left thumb cellulitis Interval history: Patient doing well with minimal pain, no events overnight. He does not feel that he has improved much overnight. States he has been keeping the hand elevated in stockinette overnight Objective Vital signs: Vital Signs Temp Pulse Resp BP Pulse Ox 03/06/17 09:56 98.5 F 91 18 138/76 997 03/06/17 06:34 98.7 F 86 16 144/78 96 03/06/17 01:03 98.7 F 80 18 147/76 95 03/05/17 22:09 99.5 F 86 16 155/77 97 03/05/17 16:47 98.6 F 73 18 149/87 98 Intake and Output 03/05/17 03/06/17 03/06/17 23:59 07:59 15:59 Intake Total 590 / 590 700 / 700 812 / 812 Balance 590 / 590 700 / 700 812 / 812 Intake: IV Fluids 350 / 350 100 / 100 452 / 452 Magnesium Sulfate 1 GM In 102 / 102 Dextrose 5% 100 ML @ 100 mls/hr IVPB [facility] Rx# :[id number] Zosyn 3.375 GM In 100 / 100 100 / 100 100 / 100 Dextrose 5% (Minibag+) 100 ML 100 ML @ 25 mls/hr IVPB Q8HR [facility] Rx#: [id number] Vancocin 1,500 MG In 250 / 250 250 / 250 Dextrose 5% 250 ML @ 166. 667 mls/hr IVPB Q12H [facility] Rx#:[id number] Oral 240 / 240 600 / 600 360 / 360 Other: Meal Dinner Breakfast Percent of Meal Consumed 100% 100% # Voids 2 Blood Glucose* 229 214 311 Incision: swollen (left thumb continues to have moderate swelling and erythema radiating to wrist on dorsal side with echymosis. Limited ROM of thumb. palpation over the 1st MC espressed more purluent drainage from the open incision. Brisk cap refill, NV intact) - Labs CBC & BMP: 03/06/17 04:29 03/06/17 04:29 Labs: Abnormal lab results Hct 36.8 % (37.5-50.1) L 03/06/17 04:29 MCHC 35.6 g/dL (31.6-35.5) H 03/06/17 04:29 ESR 120 mm/hr (0-10) H 03/06/17 14:52 Sodium 135 mEq/L (136-145) L 03/06/17 04:29 Glucose 199 mg/dL (70-99) H 03/06/17 04:29 POC Glucose 246 (58-89) H 03/05/17 21:01 Hemoglobin A1c 10.6 % (-5.6) H 03/03/17 13:11 Magnesium 1.5 mg/dL (1.6-2.6) L 03/06/17 04:29 C-Reactive Protein 93 mg/L (Less than 5) H 03/06/17 14:52 - VTE Documentation of Mechanical Device: Graduated compression elastic hosiery Consult Discharge Plan - Plan Referrals: Airam Fenton, TRENCHING MACHINE OPERATOR [Primary Care Provider] -
[2017-03-07] MEDS: *HR* Heparin 5,000 UNIT/ML VIAL SQ SCH ×4 (00:01→23:50)
[2017-03-07] MEDS: Piperacillin/Tazobactam 3.375 GM in D5% in Water (Mini-Bag+) 100 ML IVPB SCH ×4 (02:14→23:51)
[2017-03-07] MEDS: Vancomycin 1,500 MG in D5% in Water 250 ML IVPB SCH ×2 (02:15→13:21)
[2017-03-07 06:23] LABS: Basophils # 0.1 K/mcL (0.0-0.2); Basophils % 0.8 %; Eosinophils # 0.3 K/mcL (0.0-0.6); Eosinophils % 3.7 %; Hemoglobin 13.2 g/dL (12.9-16.9); Immature Granulocytes % 2.6 % (0-4); Lymphocytes # 1.7 K/mcL (0.6-4.6); Lymphocytes % 23.2 %; Mean Corpuscular HGB Conc 34.7 g/dL (31.6-35.5); Mean Corpuscular Hemoglobin 29.9 pg (28.0-33.3); Mean Platelet Volume 10.4 fL (9.4-12.4); Monocytes # 0.9 K/mcL (0.0-1.3); Monocytes % 11.6 %; Neutrophils # 4.3 K/mcL (1.6-8.9); Platelet Count 294 K/mcL (140-400); Red Blood Count 4.42 M/mcL (4.19-5.50); Segmented Neutrophils % 58.1 %
[2017-03-07 06:34] LABS: BUN/Creatinine Ratio 23 (6-26); Blood Urea Nitrogen 22 mg/dL (8-26); Calcium 10.2 mg/dL (8.6-10.8); Carbon Dioxide 25 mEq/L (19-29); Chloride 102 mEq/L (98-109); Glucose 179 mg/dL (70-99); Magnesium 1.7 mg/dL (1.6-2.6); Osmolality,Calculated 290 (280-300); Phosphorous 3.5 mg/dL (2.3-4.7); Sodium 136 mEq/L (136-145); eGFR For African Americans > 60 (> 60); eGFR For Non-African Americans > 60 (> 60)
[2017-03-07] MEDS: Insulin LISPRO 300 UNITS/3 ML VIAL SQ SCH ×7 (08:00→21:12)
[2017-03-07] MEDS: Insulin DETEMIR 100 UNIT/ML X5UNITS SQ SCH ×2 (08:13→21:12)
--- NOTE | 2017-03-07 09:42 | Orthopedics Progress Note ---
Date of Encounter: 03/07/17 Time of Encounter: 09:00 - Assessment and Plan (1) Cellulitis of left hand Current Visit: Yes Status: Acute Some improvement in swelling and erythema to left thumb. Continues to have drainage on dressings but seems to be decreasing and no more active drainage from incision with palpation of area on exam. Continue local wound care washing incision with soap/water TID and apply new dry gauze dressings each time. Patient will continue this when Dc home. Final wound cx MRSA. sensitive to vancomycin which patient has been on. WBC continues to decrease 7.[address] Anna also evaluated patient and agreed that this is not surgical at this point. Recommend one more night of IV abx. If continues to show improvement tomorrow will plan for DC home tomorrow with PO abx. Patient's blood glucose better controlled today. Patient educated on diabetics having slower wound healing. Continue IV abx and pain control per hospitalist. Elevate hand in stockinette from IV pole overnight. ROM as tolerated. Subjective Principal diagnosis: Left thumb cellulitis Interval history: Patient doing well with minimal pain, no events overnight. States he has been keeping the hand elevated in stockinette overnight.Nursing has been changing dressings. Denies numbness to thumb. He feels he has improved motion of the thumb. Objective Vital signs: Vital Signs Temp Pulse Resp BP Pulse Ox 03/07/17 07:25 97.8 F 93 16 151/92 95 03/06/17 23:57 98.2 F 68 16 124/73 96 03/06/17 16:34 98.7 F 86 16 154/81 97 03/06/17 09:56 98.5 F 91 18 138/76 997 Intake and Output 03/06/17 03/07/17 03/07/17 23:59 07:59 15:59 Intake Total 250 / 250 100 / 100 100 / 100 Balance 250 / 250 100 / 100 100 / 100 Intake: IV Fluids 250 / 250 100 / 100 100 / 100 Zosyn 3.375 GM In 100 / 100 100 / 100 Dextrose 5% (Minibag+) 100 ML 100 ML @ 25 mls/hr IVPB Q8HR [facility] Rx#: [id number] Vancocin 1,500 MG In 250 / 250 Dextrose 5% 250 ML @ 166. 667 mls/hr IVPB Q12H [facility] Rx#:[id number] Other: Blood Glucose* 184 190 - Labs CBC & BMP: 03/07/17 05:48 03/07/17 05:48 Labs: Abnormal lab results ESR 120 mm/hr (0-10) H 03/06/17 14:52 Glucose 179 mg/dL (70-99) H 03/07/17 05:48 POC Glucose 156 (58-89) H 03/06/17 16:16 Hemoglobin A1c 10.6 % (-5.6) H 03/03/17 13:11 C-Reactive Protein 93 mg/L (Less than 5) H 03/06/17 14:52 - VTE Documentation of Mechanical Device: Graduated compression elastic hosiery Consult Discharge Plan - Plan Referrals: Airam Fenton, BUSINESS INTEGRATION MANAGER [Primary Care Provider] -
--- NOTE | 2017-03-07 10:23 | Internal Med Progress Note ---
Date of Encounter: 03/07/17 Time of Encounter: 09:30 - Assessment and plan (1) Cellulitis of left hand Current Visit: Yes Status: Acute Assessment and plan: Continue IV antibiotics. Orthopedic consultation appreciated-might require further surgical intervention wound culture positive for MRSA daily wound care Moderate risk for complications. (2) Hypertension Current Visit: Yes Status: Chronic Assessment and plan: BP within acceptable range continue home medications Qualifiers: Hypertension type: essential hypertension Qualified Code(s): I10 - Essential (primary) hypertension (3) Type 2 diabetes mellitus Current Visit: Yes Status: Chronic Assessment and plan: Noted to remain hyperglycemic increased levemir to 26 units SQ q12h and added humalog 13 units TIDAC continue ss insulin algorithm monitor FS and BG closely ADA diet Qualifiers: Diabetes mellitus complication status: with hyperglycemia Diabetes mellitus terminal operator insulin use: with terminal operator use Qualified Code(s): E11.65 - Type 2 diabetes mellitus with hyperglycemia; Z79.4 - intermission coordinator (current) use of insulin (4) LIANET (acute kidney injury) Current Visit: Yes Status: Resolved Assessment and plan: Acute kidney injury has resolved. continue lisinopril Patient has chronic pain and has been taking ibuprofen twice daily for several months to years. He has been advised to discontinue taking this medication on a regular basis (5) DVT prophylaxis Current Visit: Yes Status: Acute Assessment and plan: Heparin SQ (6) Electrolyte abnormality Current Visit: Yes Status: Resolved Assessment and plan: continue to monitor electrolytes and replace as needed - Subjective Interval history: Pt seen and examined at bedside. Sitting comfortably in bed and denies any pain at this time. S/P I&D of left thumb by orthopedic surgery (03/05/17). No overnight issues reported. As per ortho, patient's wound is not as improved as expected after the I&D, further surgical intervention might be required. Will continue IV abx at this time. - Constitutional Vitals: Temp Pulse Resp BP Pulse Ox 97.8 F 93 16 151/92 95 03/07/17 07:25 03/07/17 07:25 03/07/17 07:25 03/07/17 07:25 03/07/17 07:25 General appearance: Present: A&O X 3, pleasant, no acute distress, answers questions appropriately - Head Head exam: Present: atraumatic, normocephalic - Eye Eye exam: Present: conjuntiva pink, sclera anicteric - Respiratory Respiratory exam: Present: CTAB. Absent: accessory muscle use, rales, rhonchi, wheezes - Cardiovascular Cardiovascular exam: Present: RRR, +S1, +S2. Absent: diastolic murmur, gallop, rubs, systolic murmur - GI/Abdominal GI/Abdominal exam: Present: normal bowel sounds, soft. Absent: distended, tenderness - Extremities Exam Extremities exam: Present: warm, radial pulses palpable and symmetrical. Absent : calf tenderness, cyanotic, pedal edema Additional comments: left hand wrapped in dressing - Neurological Exam Neurological exam: Present: alert, oriented X3 - Psychiatric Psychiatric exam: Present: normal affect, normal mood Internal Medicine: Result - Labs CBC & Chem 7: 03/07/17 05:48 03/07/17 05:48 Labs: Short CBC 03/07/17 Range/Units 05:48 WBC 7.3 (4.3-11.1) K/mcL Hgb 13.2 (12.9-16.9) g/dL Hct 38.0 (37.5-50.1) % Plt Count 294 (140-400) K/mcL Neutrophils # 4.3 (1.6-8.9) K/mcL BMP 03/07/17 05:48 Sodium 136 Potassium 4.0 Chloride 102 Carbon Dioxide 25 BUN 22 Creatinine 0.95 Glucose 179 H Calcium 10.2 - ABG Interpretation ABG results: PT/INR, D-dimer PT 11.7 Seconds (9.4-12.1) 03/03/17 13:11 - VTE Documentation of Mechanical Device: Graduated compression elastic hosiery Consult Discharge Plan - Plan Referrals: Airam Fenton, GROUP LEADER WAFER POLISHING [Primary Care Provider] -
[2017-03-08] MEDS ORDERED: Vancomycin 1,000 MG in D5% in Water 250 ML IVPB SCH (02:00)
[2017-03-08 07:12] LABS: Basophils # 0.1 K/mcL (0.0-0.2); Basophils % 1.2 %; Eosinophils # 0.3 K/mcL (0.0-0.6); Eosinophils % 4.5 %; Hematocrit 40.1 % (37.5-50.1); Immature Granulocytes % 4.2 % (0-4); Lymphocytes # 1.8 K/mcL (0.6-4.6); Lymphocytes % 25.9 %; Mean Corpuscular HGB Conc 34.9 g/dL (31.6-35.5); Mean Corpuscular Hemoglobin 30.6 pg (28.0-33.3); Mean Corpuscular Volume 87.7 fL (83.0-100.0); Mean Platelet Volume 10.8 fL (9.4-12.4); Monocytes # 0.9 K/mcL (0.0-1.3); Neutrophils # 3.6 K/mcL (1.6-8.9); Platelet Count 320 K/mcL (140-400); Red Blood Count 4.57 M/mcL (4.19-5.50); Red Cell Distribution Width 12.2 % (11.5-14.5); Segmented Neutrophils % 51.2 %
[2017-03-08 07:19] LABS: BUN/Creatinine Ratio 22 (6-26); Blood Urea Nitrogen 25 mg/dL (8-26); Calcium 10.4 mg/dL (8.6-10.8); Carbon Dioxide 27 mEq/L (19-29); Chloride 102 mEq/L (98-109); Glucose 158 mg/dL (70-99); Magnesium 1.8 mg/dL (1.6-2.6); Osmolality,Calculated 292 (280-300); Phosphorous 3.6 mg/dL (2.3-4.7); Potassium 4.6 mEq/L (3.5-4.5); Sodium 137 mEq/L (136-145); eGFR For African Americans > 60 (> 60); eGFR For Non-African Americans > 60 (> 60)
[2017-03-08] MEDS: Insulin LISPRO 300 UNITS/3 ML VIAL SQ SCH ×2 (08:04→08:05)
[2017-03-08] MEDS: *HR* Heparin 5,000 UNIT/ML VIAL SQ SCH (08:05)
[2017-03-08] MEDS: Piperacillin/Tazobactam 3.375 GM in D5% in Water (Mini-Bag+) 100 ML IVPB SCH (08:05)
[2017-03-08] MEDS: Insulin DETEMIR 100 UNIT/ML X5UNITS SQ SCH (09:24)
--- NOTE | 2017-03-08 09:37 | Orthopedics Progress Note ---
Date of Encounter: 03/08/17 Time of Encounter: 09:15 - Assessment and Plan (1) Cellulitis of left hand Current Visit: Yes Status: Acute Continued improvement in swelling and erythema to left thumb. Patient will continue local wound care upon DC home (washing incision with soap/ water TID and apply new dry gauze dressings each time.) WBC continues to decrease 6.9 today. Continue IV abx and pain control per hospitalist. Will need to DC home on PO abx. Continue to elevate hand. ROM as tolerated. Follow up with Kadi Epstein PA-C in [facility] office on 03/13/17 at 10:00am. Subjective Principal diagnosis: Left thumb cellulitis Interval history: Patient doing well with no pain, no events overnight. States he has been keeping the hand elevated in stockinette overnight. Denies numbness to thumb. He feels he has continued to have improvement in motion of the thumb. He is getting more comfortable with the wound care/dressings himself. Objective Vital signs: Vital Signs Temp Pulse Resp BP Pulse Ox 03/08/17 06:53 98.3 F 90 18 163/87 97 03/08/17 05:13 98.1 F 61 16 145/79 97 03/07/17 23:49 98.5 F 75 15 153/89 98 03/07/17 19:28 98.5 F 76 16 144/76 98 03/07/17 16:00 98.9 F 108 14 122/78 03/07/17 11:07 98.9 F 80 16 133/78 Intake and Output 03/07/17 03/08/17 03/08/17 23:59 07:59 15:59 Intake Total 100 / 100 350 / 350 Output Total 0 / 0 Balance 100 / 100 350 / 350 Intake: IV Fluids 100 / 100 350 / 350 Zosyn 3.375 GM In 100 / 100 100 / 100 Dextrose 5% (Minibag+) 100 ML 100 ML @ 25 mls/hr IVPB Q8HR [facility] Rx#: [id number] Vancocin 1,000 MG In 250 / 250 Dextrose 5% 250 ML @ 167 mls/hr IVPB Q12H [facility] Rx#: [id number] Output: Urine 0 / 0 Other: # Voids 3 Weight 94.6 kg Blood Glucose* 155 219 Patient Weight 03/08/17 23:59 Weight 94.6 kg Incision: healing (Incision still open to dorsal thumb. Decreased swelling and erythema, continued echymosis to dorsal thumb. Small amount drainage on dressings, no active drainage from incision with palpation of surrounding area. no tenderness to palpation of thumb or hand. Almost full ROM of thumb and hand now. brisk cap refill. NV intact) - Labs CBC & BMP: 03/08/17 05:57 03/08/17 05:57 Labs: Abnormal lab results Immature Gran % 4.2 % (0-4) H 03/08/17 05:57 ESR 120 mm/hr (0-10) H 03/06/17 14:52 Potassium 4.6 mEq/L (3.5-4.5) H 03/08/17 05:57 Glucose 158 mg/dL (70-99) H 03/08/17 05:57 POC Glucose 219 (58-89) H 03/08/17 06:56 Hemoglobin A1c 10.6 % (-5.6) H 03/03/17 13:11 C-Reactive Protein 93 mg/L (Less than 5) H 03/06/17 14:52 - VTE Documentation of Mechanical Device: Graduated compression elastic hosiery Consult Discharge Plan - Plan Additional Instructions: Please follow up with your primary care physician and orthopedic surgery within one week after your discharge from the hospital. Please continue oral antibiotics as prescribed. Continue daily dressing changes as per ortho (wound care instructions: washing incision with soap/water TID and apply new dry gauze dressings each time) Please closely monitor your blood pressure and blood glucose at home. Please inform your primary care physician, if you are persistently having elevated blood glucose (>200) despite taking your insulin and oral antihyperglycemic agents Resume all your home medications as prescribed by your primary care physician. Referrals: Kadi Epstein PAC [Physician Machine Maintenance Mechanic] - 03/13/17 10:00 am Airam Fenton CNP [Primary Care Provider] - Prescriptions: Docusate [Colace] 100 mg PO BID PRN #20 PRN Reason: Constipation HYDROcodone/Acet 5/325 mg [[place] 5-325 mg] 1 tab PO Q6H PRN #15 tab PRN Reason: Severe Pain Sulfamethoxazole/Trimeth DS [Bactrim DS] 1 each PO BID #21 tablet
--- NOTE | 2017-03-08 09:42 | Discharge Summary ---
Date of Encounter: 03/08/17 Time of Encounter: 09:41 - Discharge Diagnosis (1) Cellulitis of left hand Priority: Primary Status: Acute (2) Hypertension Priority: Secondary Status: Chronic Qualifiers: Hypertension type: essential hypertension Qualified Code(s): I10 - Essential (primary) hypertension (3) Type 2 diabetes mellitus Priority: Secondary Status: Chronic Qualifiers: Diabetes mellitus complication status: with hyperglycemia Diabetes mellitus speech lang path therapist insulin use: with speech lang path therapist use Qualified Code(s): E11.65 - Type 2 diabetes mellitus with hyperglycemia; Z79.4 - analysis evaluator (current) use of insulin (4) LIANET (acute kidney injury) Priority: Secondary Status: Resolved (5) DVT prophylaxis Priority: Secondary Status: Acute (6) Electrolyte abnormality Priority: Secondary Status: Resolved - Discharge Medications Prescriptions: Docusate [Colace] 100 mg PO BID PRN #20 PRN Reason: Constipation HYDROcodone/Acet 5/325 mg [[place] 5-325 mg] 1 tab PO Q6H PRN #15 tab PRN Reason: Severe Pain Sulfamethoxazole/Trimeth DS [Bactrim DS] 1 each PO BID #21 tablet Home Medications: Gemfibrozil [Lopid] 600 mg PO BID 03/23/15 [History] Lisinopril [Zestril] 10 mg PO DAILY 03/23/15 [History] metFORMIN [Glucophage] 1,000 mg PO BID 03/23/15 [History] Insulin Glargine [Lantus] 17 unit SQ HS 03/03/17 [History] Docusate [Colace] 100 mg PO BID PRN #20 03/08/17 [Rx] HYDROcodone/Acet 5/325 mg [[place] 5-325 mg] 1 tab PO Q6H PRN #15 tab 03/08/17 [Rx ] Sulfamethoxazole/Trimeth DS [Bactrim DS] 1 each PO BID #21 tablet 03/08/17 [Rx] Allergies/Adverse Reactions: 3 Allergy/AdvReac Type Severity Reaction Status Date / Time No Known Allergies Allergy Verified 03/23/15 17:53 Date of admission: 03/03/17 14:25 Primary care physician: Airam Fenton CNP Consults: 03/03/17 15:20 Consult to Orthopedic Surgery [CONS] Routine Consulting Provider: [facility] Reason for Consult: 66M diabetic with cellulitis of left thumb spread to hand and up 1/3 of arm, concern for tenosynovitis. Call Completed: Yes 03/03/17 16:03 Consult to Nutrition [CONS] Routine Comment: Consulting Provider: NUTRITION Reason for Dietary Consult: MST Score Consult to Pastoral Services [CONS] Routine Comment: 03/06/17 11:23 Consult to Arc Trimmer [CONS] Routine Reason for SW Consult: Discharge planning Discharging clinician: Jen Marquez Anticipated date of discharge: 03/08/17 - Patient Status Disposition: Home, Self-Care Condition: Good Functional capacity at discharge: independent ambulation Overall status at discharge: patient is back to baseline - Discharge Instructions Follow Up With: Airam Fenton CNP [Primary Care Provider] - Additional Instructions: Please follow up with your primary care physician and orthopedic surgery within one week after your discharge from the hospital. Please continue oral antibiotics as prescribed. Continue daily dressing changes as per ortho (wound care instructions: washing incision with soap/water TID and apply new dry gauze dressings each time) Please closely monitor your blood pressure and blood glucose at home. Please inform your primary care physician, if you are persistently having elevated blood glucose (>200) despite taking your insulin and oral antihyperglycemic agents Resume all your home medications as prescribed by your primary care physician. - Diet and Activity Activity: resume usual activities as tolerated Diet: diabetic diet, low salt diet Hospital course: Mr. Arevalo is a 67 year old male with PMH of HTN, HLD, Type II DM admitted for left thumb cellulitis. Due to the severity of his infection, orthopedic surgery was consulted and patient underwent I&D of the abscess on left thumb. He responded well to IV abx and his therapy was altered as per his wound culture results. At this time he hemodynamically stable with improvement of his left hand wound and cellulitis. He is cleared for discharge from ortho stand point with a follow up with ortho within a week after his discharge. He is to continue daily dressing changes and oral antibiotics. Pt will be discharged to home today with follow up with ortho and PCP. Pt demonstrates understanding of his diagnosis and agrees with the discharge care and plan. - Time Spent with Patient Total time spent providing and/or coordinating discharge services: Less than 30 minutes - Constitutional Vitals: Temp Pulse Resp BP Pulse Ox 98.3 F 90 18 163/87 97 03/08/17 06:53 03/08/17 06:53 03/08/17 06:53 03/08/17 06:53 03/08/17 06:53 General appearance: Present: A&O X 3, pleasant, no acute distress, answers questions appropriately - Head Head exam: Present: atraumatic, normocephalic - Eye Eye exam: Present: conjuntiva pink, sclera anicteric - Respiratory Respiratory exam: Present: CTAB. Absent: accessory muscle use, rales, rhonchi, wheezes - Cardiovascular Cardiovascular exam: Present: RRR, +S1, +S2. Absent: diastolic murmur, gallop, rubs, systolic murmur - GI/Abdominal GI/Abdominal exam: Present: normal bowel sounds, soft, no peritoneal signs. Absent: distended, tenderness - Extremities Exam Extremities exam: Present: warm, radial pulses palpable and symmetrical. Absent : calf tenderness, pedal edema (left thumb/hand dressing intact) - Neurological Exam Neurological exam: Present: alert, oriented X3 - Psychiatric Psychiatric exam: Present: normal affect, normal mood - VTE Documentation of Mechanical Device: Graduated compression elastic hosiery
[2017-03-08 11:04] VITALS: BP 127/77
[2017-03-08] MEDS ORDERED: Aminoglycoside Consult 1 EACH MC ONE (12:33)
== END 2017-03-08 12:34 | disposition home or self-care (01) | DRG 603 ==
LOC: EMEROO 12:35 → SUATTDRO 14:25 → 3NENU 14:25
PROVIDERS: ADMIT Internal Medicine Endocrinology, Diabetes & Metabolism; ATTEND Internal Medicine